=== PATIENT | female | born 1980 | race Caucasian/White ===

== ENCOUNTER 2018-07-22 16:05 | Emergency (ER) | payer MEDICAID ==
[~2018-07-22] VITALS: Ht 162.6 cm; Wt 79.4 kg
[2018-07-22 16:18] VITALS: Ht 162.6 cm; Wt 79.4 kg
[2018-07-22 16:58] LABS: BASOPHIL % 1.6 % (0-2); PLATELET COUNT 288 x10^3mcL (130-400)
[2018-07-22 17:01] LABS: RED CELL DISTRIBUTION WIDTH 14.8 % (11.5-14.5)
[2018-07-22 17:08] LABS: CALCIUM 8.7 mg/dL (8.5-10.1); CARBON DIOXIDE 22.1 mmol/L (21-32); CHLORIDE SERUM 107 mmol/L (98-107); CREATININE SERUM 0.8 mg/dL (0.6-1.0); GFR1 > 60 mL/min; GLUCOSE SERUM 101 mg/dL (74-106); POTASSIUM SERUM 3.7 mmol/L (3.5-5.1); SODIUM SERUM 141 mmol/L (136-145)
[2018-07-22 17:36] VITALS: BP 119/60
== END 2018-07-22 17:36 | disposition home or self-care (01) ==
LOC: ED 16:05
PROVIDERS: Emergency Medicine
DX: R42 Dizziness and giddiness (principal); R11.2 Nausea with vomiting, unspecified
CPT/HCPCS: 36415; J8597; Q0162

== ENCOUNTER 2019-03-18 19:23 | Emergency (ER) | payer MEDICAID ==
[2019-03-18 19:32] VITALS: Ht 167.6 cm
[2019-03-18 21:31] VITALS: BP 129/87
== END 2019-03-18 21:31 | disposition home or self-care (01) ==
LOC: ED 19:23
DX: S46.911A Strain of unspecified muscle, fascia and tendon at shoulder and upper arm level, right arm, initial encounter (principal); S53.401A Unspecified sprain of right elbow, initial encounter; X50.9XXA Other and unspecified overexertion or strenuous movements or postures, initial encounter; Y93.89 Activity, other specified; Y92.89 Other specified places as the place of occurrence of the external cause; Y99.8 Other external cause status
CPT/HCPCS: J1885